=== PATIENT | female | born 1990 | race African-American/Black ===

== ENCOUNTER 2017-06-30 09:00 | Emergency (ER) | payer OTHER ==
[2017-06-30 09:08] VITALS: BP 101/48; PULSE 79; TEMP 98.1; BMI 20.7
[2017-06-30] MEDS ORDERED: ACETAMINOPHEN 500 MG TABLET (FP) PO ONE (10:17)
[2017-06-30] MEDS ORDERED: CEPHALEXIN MONOHYDRATE 500 MG CAPSULE (UD) PO ONE (10:17)
[2017-06-30] MEDS ORDERED: CEPHALEXIN MONOHYDRATE 500 MG CAPSULE (UD) ONE (10:18)
[2017-06-30] MEDS ORDERED: ACETAMINOPHEN 500 MG TABLET (FP) ONE (10:18)
--- NOTE | 2017-06-30 10:22 | PDOC ---
History of Present Illness - General Chief Complaint: Redness To Affected Area Stated Complaint: LT FINGER INFECTION Time Seen by Provider: 06/30/17 09:55 History Source: Patient Exam Limitations: No Limitations - History of Present Illness Initial Comments: 06/30/17 19:50 My chief complaint: Tenderness and swelling around left index nailbed History of present illness: Patient is a 26-year-old female with no significant medical history here today with swelling and discoloration around her left index nail bed with tenderness getting worse over the last week. Patient reports biting her cuticle. Patient currently is breast-feeding. She denies any fever. Timing/Duration: 1 week Severity: moderate Associated Symptoms: reports: other (abscess left index finger ) Past History - Past Medical History Allergies/Adverse Reactions: Allergies Allergy/AdvReac Type Severity Reaction Status Date / Time No Known Allergies Allergy Verified 06/30/17 09:08 Home Medications: Ambulatory Orders Cephalexin Monohydrate [Keflex -] 500 mg PO Q8H #29 capsule 06/30/17 COPD: No - Suicide/Smoking/Psychosocial Hx Smoking History: Never smoked Hx Alcohol Use: Yes (SOCIAL) Drug/Substance Use Hx: No Review of Systems - Review of Systems Able to Perform ROS?: Yes Constitutional: No: Symptoms Reported HEENTM: No: Symptoms Reported Respiratory: No: Symptoms reported Cardiac (ROS): No: Symptoms Reported ABD/GI: No: Symptoms Reported : No: Symptoms Reported Musculoskeletal: No: Symptoms Reported Integumentary: Yes: Other (left index swelling around nailbed ) Neurological: No: Symptoms reported *Physical Exam - Vital Signs Last Vital Signs Temp Pulse Resp BP Pulse Ox 98.1 F 79 18 101/48 100 06/30/17 09:05 06/30/17 09:05 06/30/17 09:05 06/30/17 09:05 06/30/17 09:05 - Physical Exam General Appearance: Yes: Appropriately Dressed Comments:: 06/30/17 10:21 radial pulse 4 + left Extremity: positive: Normal Capillary Refill, Normal Range of Motion (slightly decreased range of motion left DIP jt ) Integumentary: positive: Erythema (left index finger swelling tender) Procedures - Consent Consent obtained: From Patient - Incision and Drainage I&D Site: Left: Paronychia (index ) Betadine cleansed: Yes Blade Size: 18 gauge needle lifted paronchia Attempts: 2 (lg amt yellowish discharge ) Complications: none Dressing: Yes (letty cortes) Medical Decision Making - Medical Decision Making 06/30/17 19:51 Patient is a 26-year-old female with no significant medical history here today with swelling and discoloration around her left index nail bed with tenderness getting worse over the last week. Patient reports biting her cuticle. Patient currently is breast-feeding. She denies any fever. Paronychium left index finger PLAN: I& D left index finger keflex 500 mg q 8 hr for 10 days 06/30/17 19:52 wound C & S left index 06/30/17 19:54 *DC/Admit/Observation/Transfer Diagnosis at time of Disposition: Paronychia of left index finger - Discharge Dispostion Disposition: HOME Condition at time of disposition: Stable - Prescriptions Prescriptions: Cephalexin Monohydrate [Keflex -] 500 mg PO Q8H #29 capsule - Referrals - Patient Instructions Additional Instructions: Soak left index finger in warm salt water mix together 1 couple water with a quarter teaspoon of salt every 2 hours for 10-15 minutes today and tomorrow while awake Return to emergency room if swelling of finger worsens or redness or any fever Follow-up with your primary care provider within the next few days You may take acetaminophen as needed 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
== END 2017-06-30 10:43 | disposition home or self-care (01) ==
LOC: JERFT 09:00
PROC: 0J9K0ZZ Drainage of Left Hand Subcutaneous Tissue and Fascia, Open Approach (ICD-10-PCS; principal; 2017-06-30)
DX: L03.012 Cellulitis of left finger (principal)
CPT/HCPCS: 10060; 87070; 87205; 99281-25